=== PATIENT | male | born 1955 | race Caucasian/White ===

== ENCOUNTER 2018-05-12 17:35 | Inpatient (IN) ==
[2018-05-12] MEDS ORDERED: Ondansetron ODT 4 MG TAB.RAPDIS SL PRN (21:38)
[2018-05-12] MEDS ORDERED: Ketorolac 30 MG/ML VIAL IVP PRN (21:38)
[2018-05-12] MEDS ORDERED: OXYCODONE Oral CONC 10 MG/0.5 ML ORAL.SYG SL PRN (21:38)
[2018-05-12] MEDS ORDERED: Naloxone 0.4 MG/ML INJ IVP PRN (21:38)
[2018-05-12] MEDS ORDERED: 0.9 % Sodium Chloride 1,000 ML IVC SCH (21:45)
--- NOTE | 2018-05-12 21:49 | Internal Med History&Physical ---
Date of Encounter: 05/12/18 Time of Encounter: 21:46 Internal Medicine - H&P: HPI Admitted From: Home Plans for Post Hospital Care: Home History of present illness: Mr. Fuentes is a 62 year old man with a history of hypertension and anxiety disorder who has been having intermittent epigastric and right upper quadrant abdominal pain for the past 3 months and today after eating in the morning felt exquisite right upper quadrant pain that left him diaphoretic with generalized numbness. He began to have fever and chills and his girlfriend called the EMS after which she was taken to [facility]. He was found to have leukocytosis of 16.5 with neutrophilia, lactic acid of 3, lipase over 1999, and CT scan suggestive of pancreatitis and possible cholecystitis. They contacted Dr. Kwon of general surgery with the recommendation of transfer and evaluation for surgery tomorrow morning. He states that the pain is exacerbated by movements and has not been able to obtain adequate relief. He feels nauseated but has not vomited. He denies having diarrhea. He denies a smoking or alcohol history. His past medical history is remarkable for throat cancer requiring radiation therapy and chemotherapy for which he is now on supplemental thyroxine. He also has an extensive orthopedic surgery history. Past Med Surg Social Fam HX - Past Medical History Medical history: cancer, hypertension, thyroid disease Additional medical history: throat cancer had radiation and chemo. sleep apnea Psychiatric history: depression - Past Surgical History Additional surgical history: back 1997. left knee repl. left knee manip. [facility] - Social History Smoking Status: Never smoker Smokeless Tobacco Status: No Alcohol use: none Drug use: none Internal Medicine - H&P: Meds OxyCODONE Immed Rel [Roxicodone 5 MG] 5 mg PO Q4HR PRN #24 tablet 07/26/17 [Rx] Escitalopram [Lexapro] 20 mg PO DAILY 05/12/18 [History] Ibuprofen [Motrin] 800 mg PO Q8HR PRN 05/12/18 [History] Levothyroxine [Synthroid] 50 mcg PO 0630 05/12/18 [History] Lisinopril 10 mg PO DAILY 05/12/18 [History] 3 Allergy/AdvReac Type Severity Reaction Status Date / Time No Known Allergies Allergy Verified 07/26/17 11:04 All Systems PM: A 10-system review of systems was performed and is negative for pertinent findings except as documented above in the HPI. - Constitutional Vitals: Temp Pulse Resp BP Pulse Ox 98.4 F 78 15 150/87 96 05/12/18 20:43 05/12/18 20:43 05/12/18 20:43 05/12/18 20:43 05/12/18 20:43 Exam: Vitals: Reviewed and seem to be within normal limits. Afebrile. General: Well-developed male in no acute distress lying comfortably in bed. Skin: Warm and supple. HEENT: Slioghtly dry mucous membranes. No conjunctivae pallor. Neck: No lymphadenopathy. No JVD. Chest: Normal thoracic expansion. Normal breath sounds. Clear to auscultation. Heart: Normal S1 & S2; rhythmic. No rubs or murmurs. Abdomen: Non-distended, voluntary guarding on palpation with tenderness elicited on deep epigastric and RUQ palpation. No peritoneal reaction. Extremities: No clubbing, cyanosis or edema. No calf tenderness. Normal distal pulses. Neurological: Awake, alert and oriented to person, place and time. No focal deficits. Internal Med - H&P Results - Labs Labs: Outside labs were reviewed and indicated in the history of present illness. - Assessment and plan (1) Pancreatitis Current Visit: Yes Status: Acute Assessment and plan: No history of alcohol use; likely secondary to biliary obstruction given the intermittent colicky pain over the past 3 months and suggestive findings on CT. Seen to have lipase >2000 with radiologic and clinical findings that correlate. -IVF started. -Keep NPO. -Pain control with ketorolac and oxycodone prn. Qualifiers: Chronicity: acute Pancreatitis type: biliary Acute pancreatitis complication: no infection or necrosis Qualified Code(s): K85.10 - Biliary acute pancreatitis without necrosis or infection (2) Cholecystitis Current Visit: Yes Status: Acute Assessment and plan: Suggestive findings on imaging and RUQ pain predominance is suggestive. -Will order an ultrasound for more specificity to confirm findings. -Keep NPO. -Start empiric Pip/Tazo 3.375grs q8hrs. -Surgery consult placed. -Coags sent. (3) Sepsis Current Visit: Yes Status: Acute Assessment and plan: Evidenced by leukocytosis with neutrophilia and elevated lactic acid. Secondary to gastrointestinal processed as noted above. -Will give aggressive IVF -Monitor labs frequently and BP. -Abx as above. Qualifiers: Sepsis type: sepsis due to unspecified organism Qualified Code(s): A41.9 - Sepsis, unspecified organism (4) Anxiety and depression Current Visit: Yes Status: Chronic Assessment and plan: Will place lorazepam and escitalopram on hold for now; can be resumed after NPO status is advanced. - Time Spent With Patient Total time spent is greater than 50% in coordination of care (as documented) at patient's floor/unit and/or counseling patient: Greater than 35 minutes
[2018-05-12 22:22] LABS: Basophils % 0.1 %; Hematocrit 45.6 % (37.5-50.1); Hemoglobin 15.5 g/dL (12.9-16.9); Immature Granulocytes % 0.5 % (0-4); Lymphocytes # 0.6 K/mcL (0.6-4.6); Lymphocytes % 4.4 %; Mean Corpuscular Hemoglobin 31.5 pg (28.0-33.3); Mean Corpuscular Volume 92.7 fL (83.0-100.0); Mean Platelet Volume 10.6 fL (9.4-12.4); Monocytes # 0.8 K/mcL (0.0-1.3); Monocytes % 5.8 %; Neutrophils # 12.5 K/mcL (1.6-8.9); Platelet Count 154 K/mcL (140-400); Red Blood Count 4.92 M/mcL (4.19-5.50); Red Cell Distribution Width 13.8 % (11.5-14.5); Segmented Neutrophils % 89.2 %
[2018-05-12 22:31] LABS: INR 1.2
[2018-05-12 22:42] LABS: Alanine Aminotransferase 142 Units/L (7-52); Albumin 4.2 g/dL (3.5-5.7); Albumin/Globulin Ratio 1.6 (1.1-2.2); Alkaline Phosphatase 68 Units/L (34-104); Aspartate Amino Transferase 96 Units/L (13-39); BUN/Creatinine Ratio 22 (6-26); Bilirubin,Total 0.9 mg/dL (0.3-1.0); Blood Urea Nitrogen 18 mg/dL (8-23); Calcium 9.6 mg/dL (8.6-10.3); Carbon Dioxide 22 mEq/L (23-29); Chloride 105 mEq/L (98-107); Globulin 2.6 g/dL (2.4-3.5); Glucose 120 mg/dL (70-105); Osmolality,Calculated 289 (280-300); Potassium 4.1 mEq/L (3.5-5.1); Sodium 138 mEq/L (136-145); Total Protein 6.8 g/dL (6.4-8.9); eGFR For African Americans > 60 (> 60); eGFR For Non-African Americans > 60 (> 60)
[2018-05-12] MEDS ORDERED: 0.9 % Sodium Chloride 1,000 ML ONE (22:49)
[2018-05-12] MEDS ORDERED: Ondansetron 4 MG/2 ML VIAL ONE (22:49)
[2018-05-13] MEDS: Ringers Solution, Lactated 1,000 ML IVC SCH ×2 (00:01→09:00)
[2018-05-13] MEDS: Piperacillin/Tazobactam 3.375 GM in 0.9 % Sodium Chloride Mini Bag 100 ML IVPB SCH ×4 (00:02→23:30)
--- NOTE | 2018-05-13 01:48 | Event Note ---
Date of Encounter: 05/13/18 Time of Encounter: 01:47 The patient was seen lying comfortably in bed on follow up stating that his abdominal pain has improved however he feels as though he is "burning up" and has chills. His lactate has improved to 1.6 from 3.0. He is on IVF. Blood cultures were obtained prior to transfer here however given current symptoms, will repeat another set here for follow up.
[2018-05-13] MEDS: *HR* Heparin 5,000 UNIT/ML VIAL SQ SCH ×2 (06:38→21:19)
[2018-05-13 07:09] LABS: Basophils % 0.1 %; Hematocrit 40.4 % (37.5-50.1); Immature Granulocytes % 0.7 % (0-4); Lymphocytes # 0.6 K/mcL (0.6-4.6); Mean Corpuscular HGB Conc 33.9 g/dL (31.6-35.5); Mean Corpuscular Hemoglobin 31.9 pg (28.0-33.3); Mean Platelet Volume 10.9 fL (9.4-12.4); Monocytes # 0.9 K/mcL (0.0-1.3); Monocytes % 4.5 %; Platelet Count 148 K/mcL (140-400); Red Cell Distribution Width 14.2 % (11.5-14.5); Segmented Neutrophils % 91.7 %
[2018-05-13 07:13] LABS: Hemoglobin 13.7 g/dL (12.9-16.9)
[2018-05-13] MEDS ORDERED: Ondansetron ODT 4 MG TAB.RAPDIS SL PRN (07:29)
[2018-05-13 07:30] LABS: Alanine Aminotransferase 117 Units/L (7-52); Albumin 3.8 g/dL (3.5-5.7); Albumin/Globulin Ratio 1.6 (1.1-2.2); Alkaline Phosphatase 56 Units/L (34-104); Aspartate Amino Transferase 64 Units/L (13-39); BUN/Creatinine Ratio 21 (6-26); Blood Urea Nitrogen 21 mg/dL (8-23); Carbon Dioxide 24 mEq/L (23-29); Chloride 106 mEq/L (98-107); Globulin 2.4 g/dL (2.4-3.5); Glucose 153 mg/dL (70-105); Osmolality,Calculated 294 (280-300); Sodium 139 mEq/L (136-145); Total Protein 6.2 g/dL (6.4-8.9); eGFR For African Americans > 60 (> 60); eGFR For Non-African Americans > 60 (> 60)
--- NOTE | 2018-05-13 11:16 | General Surgery Consult Note ---
<Jonny Eldridge T - Last Filed: 05/13/18 11:25> Date of Encounter: 05/13/18 Time of Encounter: 11:13 Assessment and Plan (1) Cholecystitis Current Visit: Yes Status: Acute Right upper quadrant ultrasound ordered for tomorrow a.m. Clear liquid diet today nothing by mouth midnight. We will assess possible surgery tomorrow depending on if pancreatitis has resolved. IV fluids Encourage ambulation, positive spirometry Serial abdominal exams Surgery will continue following. (2) Pancreatitis Current Visit: Yes Status: Acute Waiting for pancreatitis to resolve before treating gallbladder. Follow labs. Qualifiers: Chronicity: acute Pancreatitis type: biliary Acute pancreatitis complication: no infection or necrosis Qualified Code(s): K85.10 - Biliary acute pancreatitis without necrosis or infection History of Present Illness Reason for consult: abdominal pain History of present illness: Patient presenting with right upper quadrant abdominal pain which radiates to right flank. Pain started yesterday morning. The pain is described as constant worsening greater than a 10 out of 10 on admission and currently a 5 out of 10 on pain meds. He also complains of nausea, vomiting, night sweats, fever, paresthesias in his hands, and vision blurring is a 3 months history of this pain however is never been this bad and usually resolves. Patient was given Zofran for nausea and vomiting and patient reports this has helped. Last bowel movement was yesterday morning. Liver function tests revealed an elevated AST 96, LT 142, and lipase 524. Ultrasound cannot be ordered today. Past Med Surg Social Fam HX - Past Medical History Medical history: cancer, hypertension, thyroid disease Additional medical history: throat cancer had radiation and chemo. sleep apnea Psychiatric history: depression - Past Surgical History Additional surgical history: back 1997. left knee repl. left knee manip. [facility] - Social History Smoking Status: Never smoker Smokeless Tobacco Status: No Alcohol use: none Drug use: none Medications and Allergies OxyCODONE Immed Rel [Roxicodone 5 MG] 5 mg PO Q4HR PRN #24 tablet 07/26/17 [Rx] Escitalopram [Lexapro] 20 mg PO DAILY 05/12/18 [History] Ibuprofen [Motrin] 800 mg PO Q8HR PRN 05/12/18 [History] Levothyroxine [Synthroid] 50 mcg PO 0630 05/12/18 [History] Lisinopril 10 mg PO DAILY 05/12/18 [History] LORazepam [Ativan] 0.5 mg PRN 05/13/18 [History] Zolpidem [Ambien] 10 mg PRN 05/13/18 [History] 3 Allergy/AdvReac Type Severity Reaction Status Date / Time No Known Allergies Allergy Verified 07/26/17 11:04 Review of Systems All systems PM: The remainder of the systems were reviewed and are negative General Surgery Exam Initial Vital Signs Temp Pulse Resp BP Pulse Ox 98.4 F 78 15 150/87 96 05/12/18 20:43 05/12/18 20:43 05/12/18 20:43 05/12/18 20:43 05/12/18 20:43 - Respiratory normal expansion, normal respiratory effort - Cardiovascular Cardiovascular exam: Present: RRR - Abdomen Abdomen general surgery: Present: soft. Absent: distended, guarding Abdominal Tenderness: Present: RUQ - Neurologic Present: CN 2-12 grossly intact - Psychiatric Psychiatric general surgery: Present: A&Ox3, appropriate, oriented to person, oriented to place, oriented to time, speech is normal, memory intact Exam Initial Vital Signs Temp Pulse Resp BP Pulse Ox 98.4 F 78 15 150/87 96 05/12/18 20:43 05/12/18 20:43 05/12/18 20:43 05/12/18 20:43 05/12/18 20:43 Results - Labs 05/13/18 06:52 05/13/18 06:52 Abnormal lab results WBC 20.8 K/mcL (4.3-11.1) H 05/13/18 06:52 Neutrophils # 19.0 K/mcL (1.6-8.9) H 05/13/18 06:52 PT 13.0 Seconds (9.4-12.1) H 05/12/18 22:02 Glucose 153 mg/dL (70-105) H 05/13/18 06:52 POC Glucose 147 mg/dL (70-99) H 05/13/18 05:07 AST 64 Units/L (13-39) H 05/13/18 06:52 ALT 117 Units/L (7-52) H 05/13/18 06:52 Serum Total Protein 6.2 g/dL (6.4-8.9) L 05/13/18 06:52 Lipase 524 Units/L (11-82) H 05/12/18 22:02 Diabetes panel 05/12/18 05/13/18 Range/Units 22:02 06:52 Sodium 138 139 (136-145) mEq/L Potassium 4.1 4.0 (3.5-5.1) mEq/L Chloride 105 106 (98-107) mEq/L Carbon Dioxide 22 L 24 (23-29) mEq/L BUN 18 21 (8-23) mg/dL Creatinine 0.82 1.00 (0.70-1.30) mg/dL Glucose 120 H 153 H (70-105) mg/dL Calcium 9.6 9.0 (8.6-10.3) mg/dL AST 96 H 64 H (13-39) Units/L ALT 142 H 117 H (7-52) Units/L Alkaline Phosphatase 68 56 (34-104) Units/L Albumin 4.2 3.8 (3.5-5.7) g/dL Calcium panel 05/12/18 05/13/18 Range/Units 22:02 06:52 Calcium 9.6 9.0 (8.6-10.3) mg/dL Albumin 4.2 3.8 (3.5-5.7) g/dL Pituitary panel 05/12/18 05/13/18 Range/Units 22:02 06:52 Sodium 138 139 (136-145) mEq/L Potassium 4.1 4.0 (3.5-5.1) mEq/L Chloride 105 106 (98-107) mEq/L Carbon Dioxide 22 L 24 (23-29) mEq/L BUN 18 21 (8-23) mg/dL Creatinine 0.82 1.00 (0.70-1.30) mg/dL Glucose 120 H 153 H (70-105) mg/dL Calcium 9.6 9.0 (8.6-10.3) mg/dL Adrenal panel 05/12/18 05/13/18 Range/Units 22:02 06:52 Sodium 138 139 (136-145) mEq/L Potassium 4.1 4.0 (3.5-5.1) mEq/L Chloride 105 106 (98-107) mEq/L Carbon Dioxide 22 L 24 (23-29) mEq/L BUN 18 21 (8-23) mg/dL Creatinine 0.82 1.00 (0.70-1.30) mg/dL Glucose 120 H 153 H (70-105) mg/dL Calcium 9.6 9.0 (8.6-10.3) mg/dL Total Bilirubin 0.9 1.0 (0.3-1.0) mg/dL AST 96 H 64 H (13-39) Units/L ALT 142 H 117 H (7-52) Units/L Alkaline Phosphatase 68 56 (34-104) Units/L Albumin 4.2 3.8 (3.5-5.7) g/dL All other labs normal. Consult Discharge Plan - Plan Referrals: Oli Cope [Primary Care Provider] - <Shine Kwon - Last Filed: 05/13/18 12:56> Date of Encounter: 05/13/18 Review of Systems All systems PM: The remainder of the systems were reviewed and are negative General Surgery Exam Initial Vital Signs Temp Pulse Resp BP Pulse Ox 98.4 F 78 15 150/87 96 05/12/18 20:43 05/12/18 20:43 05/12/18 20:43 05/12/18 20:43 05/12/18 20:43 Exam Initial Vital Signs Temp Pulse Resp BP Pulse Ox 98.4 F 78 15 150/87 96 05/12/18 20:43 05/12/18 20:43 05/12/18 20:43 05/12/18 20:43 05/12/18 20:43 Results - Labs 05/13/18 06:52 05/13/18 06:52 Abnormal lab results WBC 20.8 K/mcL (4.3-11.1) H 05/13/18 06:52 Neutrophils # 19.0 K/mcL (1.6-8.9) H 05/13/18 06:52 PT 13.0 Seconds (9.4-12.1) H 05/12/18 22:02 Glucose 153 mg/dL (70-105) H 05/13/18 06:52 POC Glucose 116 mg/dL (70-99) H 05/13/18 11:07 AST 64 Units/L (13-39) H 05/13/18 06:52 ALT 117 Units/L (7-52) H 05/13/18 06:52 Serum Total Protein 6.2 g/dL (6.4-8.9) L 05/13/18 06:52 Lipase 524 Units/L (11-82) H 05/12/18 22:02 Diabetes panel 05/12/18 05/13/18 Range/Units 22:02 06:52 Sodium 138 139 (136-145) mEq/L Potassium 4.1 4.0 (3.5-5.1) mEq/L Chloride 105 106 (98-107) mEq/L Carbon Dioxide 22 L 24 (23-29) mEq/L BUN 18 21 (8-23) mg/dL Creatinine 0.82 1.00 (0.70-1.30) mg/dL Glucose 120 H 153 H (70-105) mg/dL Calcium 9.6 9.0 (8.6-10.3) mg/dL AST 96 H 64 H (13-39) Units/L ALT 142 H 117 H (7-52) Units/L Alkaline Phosphatase 68 56 (34-104) Units/L Albumin 4.2 3.8 (3.5-5.7) g/dL Calcium panel 05/12/18 05/13/18 Range/Units 22:02 06:52 Calcium 9.6 9.0 (8.6-10.3) mg/dL Albumin 4.2 3.8 (3.5-5.7) g/dL Pituitary panel 05/12/18 05/13/18 Range/Units 22:02 06:52 Sodium 138 139 (136-145) mEq/L Potassium 4.1 4.0 (3.5-5.1) mEq/L Chloride 105 106 (98-107) mEq/L Carbon Dioxide 22 L 24 (23-29) mEq/L BUN 18 21 (8-23) mg/dL Creatinine 0.82 1.00 (0.70-1.30) mg/dL Glucose 120 H 153 H (70-105) mg/dL Calcium 9.6 9.0 (8.6-10.3) mg/dL Adrenal panel 05/12/18 05/13/18 Range/Units 22:02 06:52 Sodium 138 139 (136-145) mEq/L Potassium 4.1 4.0 (3.5-5.1) mEq/L Chloride 105 106 (98-107) mEq/L Carbon Dioxide 22 L 24 (23-29) mEq/L BUN 18 21 (8-23) mg/dL Creatinine 0.82 1.00 (0.70-1.30) mg/dL Glucose 120 H 153 H (70-105) mg/dL Calcium 9.6 9.0 (8.6-10.3) mg/dL Total Bilirubin 0.9 1.0 (0.3-1.0) mg/dL AST 96 H 64 H (13-39) Units/L ALT 142 H 117 H (7-52) Units/L Alkaline Phosphatase 68 56 (34-104) Units/L Albumin 4.2 3.8 (3.5-5.7) g/dL All other labs normal. - Attending Attestation I examined this patient and my medical decision-making was reviewed with the Resident Physician. I agree with the documented findings, disposition and treatment plan as described except to the extent set forth below. The patient is seen and evaluated with the resident on morning rounds. He was recently transferred with the diagnosis of pancreatitis from [facility]. Although the report is not available, I was able to review the CAT scan images. To my interpretation there may be cholelithiasis, however, I would like to confirm this with an ultrasound right upper quadrant. He continues to have active pancreatitis with an elevated lipase. He gives a personal history of right upper quadrant pain. I would like to repeat his amylase and lipase tomorrow morning to make sure his pancreatitis is resolving. If the ultrasound tomorrow confirms cholelithiasis, laparoscopic cholecystectomy will be indicated. Shine Kwon MD FACS
--- NOTE | 2018-05-13 21:43 | Internal Med Progress Note ---
Date of Encounter: 05/13/18 Time of Encounter: 21:41 - Assessment and plan (1) Acute pancreatitis Current Visit: Yes Status: Acute Qualifiers: Pancreatitis type: unspecified pancreatitis type Qualified Code(s): K85.90 - Acute pancreatitis without necrosis or infection, unspecified (2) Acute cholecystitis Current Visit: Yes Status: Suspected (3) Throat cancer Current Visit: Yes Status: Chronic (4) HTN (hypertension) Current Visit: Yes Status: Acute Qualifiers: Hypertension type: essential hypertension Qualified Code(s): I10 - Essential (primary) hypertension - Time Spent With Patient Total time spent is greater than 50% in coordination of care (as documented) at patient's floor/unit and/or counseling patient: 25 - 35 minutes - Subjective Interval history: .. The patient feels better. His right upper quadrant abdominal pain is mild in intensity. Denies nausea and vomiting. He is on nothing by mouth diet. Denies chest pain. Denies difficulty breathing, coughing and wheezing. He makes good amounts of urine. OBJECTIVE: .. Skin: Free of rash and discoloration. ENMT: Oral/pharyngeal mucosa is normal in appearance. Eyes: Sclera is white. There is no discharge from eyes. Respiratory: Normal breath sounds; no crackles or wheezes. CV: Heart is regular; no gallop or murmur. GI: Abdomen is soft and not tender. There is no palpable mass or visceromegaly. Neuro: There is no focal deficits. ASSESSMENT AND PLAN: .. Acute pancreatitis/possible acute cholecystitis. This diagnosis is based on the results of CT of abdomen/pelvis and elevated lipase. His leukocytosis from today is 20.8 thousand; 14.0 thousand at admission. We will continue nothing by mouth diet/IV fluids. Surgery was consulted. Ultrasound of right upper quadrant is to be done tomorrow morning. He will be taking when necessary sublingual oxycodone. The patient was diagnosed with throat and tongue cancer a few years ago. He does see his oncologist on a regular basis. Hypertension. Under control. Will continue lisinopril. Hypothyroidism. Under control. We will continue Synthroid. - Constitutional Vitals: Temp Pulse Resp BP Pulse Ox 99.6 F 88 15 184/94 95 05/13/18 19:45 05/13/18 19:45 05/13/18 19:45 05/13/18 19:45 05/13/18 19:45 Internal Medicine: Result - Labs CBC & Chem 7: 05/13/18 06:52 05/13/18 06:52 Labs: Short CBC 05/12/18 05/13/18 Range/Units 22:02 06:52 WBC 14.0 H 20.8 H (4.3-11.1) K/mcL Hgb 15.5 13.7 D (12.9-16.9) g/dL Hct 45.6 40.4 (37.5-50.1) % Plt Count 154 148 (140-400) K/mcL Neutrophils # 12.5 H 19.0 H (1.6-8.9) K/mcL BMP 05/12/18 05/13/18 22:02 06:52 Sodium 138 139 Potassium 4.1 4.0 Chloride 105 106 Carbon Dioxide 22 L 24 BUN 18 21 Creatinine 0.82 1.00 Glucose 120 H 153 H Calcium 9.6 9.0 Liver Function 05/12/18 05/13/18 Range/Units 22:02 06:52 Total Bilirubin 0.9 1.0 (0.3-1.0) mg/dL AST 96 H 64 H (13-39) Units/L ALT 142 H 117 H (7-52) Units/L Alkaline Phosphatase 68 56 (34-104) Units/L Albumin 4.2 3.8 (3.5-5.7) g/dL - ABG Interpretation ABG results: PT/INR, D-dimer PT 13.0 Seconds (9.4-12.1) H 05/12/18 22:02 Consult Discharge Plan - Plan Referrals: Oli Cope [Primary Care Provider] -
[2018-05-14] MEDS: *HR* Heparin 5,000 UNIT/ML VIAL SQ SCH ×3 (06:17→21:15)
[2018-05-14 06:55] LABS: Basophils % 0.3 %; Eosinophils % 0.6 %; Hematocrit 40.7 % (37.5-50.1); Hemoglobin 13.7 g/dL (12.9-16.9); Immature Granulocytes % 0.4 % (0-4); Lymphocytes # 0.7 K/mcL (0.6-4.6); Mean Corpuscular HGB Conc 33.7 g/dL (31.6-35.5); Mean Corpuscular Hemoglobin 31.4 pg (28.0-33.3); Mean Corpuscular Volume 93.1 fL (83.0-100.0); Monocytes # 0.6 K/mcL (0.0-1.3); Monocytes % 8.7 %; Platelet Count 119 K/mcL (140-400); Red Blood Count 4.37 M/mcL (4.19-5.50); Red Cell Distribution Width 13.9 % (11.5-14.5)
[2018-05-14 06:57] LABS: Neutrophils # 5.8 K/mcL (1.6-8.9)
[2018-05-14 07:12] LABS: BUN/Creatinine Ratio 17 (6-26); Blood Urea Nitrogen 12 mg/dL (8-23); Calcium 8.9 mg/dL (8.6-10.3); Carbon Dioxide 25 mEq/L (23-29); Chloride 103 mEq/L (98-107); Glucose 125 mg/dL (70-105); Osmolality,Calculated 281 (280-300); Potassium 3.7 mEq/L (3.5-5.1); Sodium 135 mEq/L (136-145); eGFR For African Americans > 60 (> 60); eGFR For Non-African Americans > 60 (> 60)
[2018-05-14 07:18] LABS: Albumin 3.9 g/dL (3.5-5.7); Albumin/Globulin Ratio 1.4 (1.1-2.2); Bilirubin,Direct 0.2 mg/dL (0.0-0.2); Bilirubin,Indirect 0.8 mg/dL (0.0-1.2); Globulin 2.7 g/dL (2.4-3.5); Total Protein 6.6 g/dL (6.4-8.9)
[2018-05-14] MEDS: Piperacillin/Tazobactam 3.375 GM in 0.9 % Sodium Chloride Mini Bag 100 ML IVPB SCH ×2 (07:55→15:51)
[2018-05-14] MEDS ORDERED: Isovue-300 50 ML VIAL IVP ONE (09:59)
[2018-05-14] MEDS ORDERED: Ondansetron 4 MG/2 ML VIAL ONE (10:03)
[2018-05-14] MEDS ORDERED: *HR* FentaNYL (PF) 100 MCG/2 ML VIAL ONE (10:03)
[2018-05-14] MEDS ORDERED: Lidocaine -MPF 2% 2 ML VIAL ONE (10:03)
[2018-05-14] MEDS ORDERED: *HR* Rocuronium Bromide 50 MG/5 ML VIAL ONE (10:03)
[2018-05-14] MEDS ORDERED: *HR* Midazolam HCl 2 MG/2 ML VIAL ONE (10:04)
[2018-05-14] MEDS ORDERED: *HR* Propofol 200 MG/20 ML VIAL IVP ONE (10:04)
[2018-05-14] MEDS ORDERED: Dexamethasone 4 MG/ML VIAL ONE ×2 (10:05→10:52)
--- NOTE | 2018-05-14 10:07 | Anesthesia Evaluation PreOp ---
Date of Encounter: 05/14/18 Time of Encounter: 10:05 - Past History Planned Operation: lap marcellus Cardiac History: HTN Pulmonary History: YANI Dx OIL PAINTER History: Other (anxiety) Other Medical History: Thyroid (hypo), Other (throat cancer rx'd with XRT and chemo) Anesthesia History: No Prior Anesthetic Complications, Past Anesthesia (back, left TKA, BCTR, left shoulder 2017 (used glidescope without issue)) Alcohol Use: none Drug use: none Medications and Allergies OxyCODONE Immed Rel [Roxicodone 5 MG] 5 mg PO Q4HR PRN #24 tablet 07/26/17 [Rx] Escitalopram [Lexapro] 20 mg PO DAILY 05/12/18 [History] Ibuprofen [Motrin] 800 mg PO Q8HR PRN 05/12/18 [History] Levothyroxine [Synthroid] 50 mcg PO 0630 05/12/18 [History] Lisinopril [Zestril] 10 mg PO DAILY 05/12/18 [History] LORazepam [Ativan] 0.5 mg PO DAILY PRN 05/13/18 [History] Metoprolol [Lopressor] 50 mg PO DAILY 05/13/18 [History] Zolpidem [Ambien] 10 mg PO HS PRN 05/13/18 [History] 3 Allergy/AdvReac Type Severity Reaction Status Date / Time No Known Allergies Allergy Verified 05/13/18 13:51 - Meds/Allergy Pre-op Review Medications Reviewed: Yes Allergies Reviewed: Yes Beta Blockers on Current Med List: No Anesthesia Results - Labs 05/14/18 05:55 05/14/18 05:55 Anesthesia Exam Selected Entries 05/14/18 06:56 Temperature 99.6 F Pulse Rate 89 Respiratory Rate 18 Blood Pressure 150/76 O2 Sat by Pulse Oximetry 95 Weight: 100kg NPO (# of Hours): 8 - HEENT Pupil (Motor): EOMI Mallampati: III Teeth: Normal Oral Opening: Greater than 3 - OIL PAINTER LOC: Oriented OIL PAINTER Motor: Normal RUE, Normal LUE, Normal RLE, Normal LLE, Normal Face OIL PAINTER Sensory: Normal: RUE, LUE, RLE, LLE, Face - Cardiac Rhythm: Regular Murmur: None - Pulmonary Breath Sounds: bilateral Clear Respiratory Effort: Symmetrical Anesthesia Assess/Plan ASA Score: 3 Modified Jovan Scale for Level of Consciousness: Cooperative, oriented, and tranquil Anesthetic Plan: General Monitoring Plan: Standard Monitors Recovery Plan: PACU (agrees to GA)
[2018-05-14] MEDS ORDERED: *HR* Morphine 2 MG/ML SYRINGE IVP PRN ×2 (10:12→12:24)
[2018-05-14] MEDS ORDERED: *HR* OxyCODONE Immed Rel 5 MG TABLET PO PRN ×2 (10:12→12:24)
[2018-05-14] MEDS ORDERED: *HR* Promethazine 25 MG/ML VIAL IVP PRN ×2 (10:12→12:24)
[2018-05-14] MEDS ORDERED: *HR* Labetalol 20 MG/4 ML SYRINGE IVP PRN ×2 (10:12→12:24)
[2018-05-14] MEDS ORDERED: Acetaminophen IV 1,000 MG/100 ML INFUS..BTL ONE (10:17)
[2018-05-14] MEDS ORDERED: cefOXitin 1,000 MG, 0.9 % Sodium Chloride 1,000 ML IR ONE ×2 (10:30→12:24)
[2018-05-14] MEDS ORDERED: Esmolol 100 MG/10 ML VIAL IVP ONE (11:13)
[2018-05-14] MEDS ORDERED: Ketorolac 30 MG/ML VIAL ONE (11:22)
--- NOTE | 2018-05-14 11:32 | Operative Note ---
Date of procedure: 05/14/18 Pre-op diagnosis: Gallstone pancreatitis Post-op diagnosis: same Procedure: laparoscopic cholecystectomy, cholangiogram Anesthesia: ZECHARIAH Surgeon: Shine Kwon Was there an preschool assistant teacher present: No Estimated blood loss (cc): 20 Specimen: Gallbladder and contents Condition: stable Disposition: PACU Procedure in Detail: Laparoscopic cholecystectomy and intraoperative cholangiogram Operative procedure after informed consent and appropriate patient identification timeout the patient was taken to the major operating suite and placed supine position given adequate general endotracheal anesthesia the abdomen is prepped and draped in sterile fashion utilizing ChloraPrep standard draping techniques timeout was taken patient is identified. I made a vertical midline incision below the umbilicus dissected down to level of fascia there are 2 traction stitches placed in the abdominal cavity was entered visually. A Sandy trocar was placed in the abdomen and the abdomen was insufflated to 15 mmHg pressure CO2 the gallbladder was visualized. A placement 11 port in the subxiphoid area and 2 5 mm ports in the subcostal area. The gallbladder was grasped and elevated. A variety of blunt and sharp dissection techniques were used to isolate the cystic duct and cystic artery. The cystic artery was controlled with 2 surgical clips proximally and one distally and it was divided I placed a surgical clip on the neck the gallbladder and obtained an intraoperative cholangiogram using 10 mL of Isovue. Intraoperative cholangiogram was normal. The cholangiocatheter was removed and the cystic duct was controlled with 2 surgical clips proximally and was divided the gallbladder was removed from the gallbladder fossae using electrocautery. The gallbladder was removed through the #11 port site. I replaced the #11 port and irrigated with copious amounts of antibiotic containing solution. There is no evidence of bleeding or bile leak. All trochars were removed. Fascia was closed with 0 Vicryl skin with 2-0 and 4-0 Vicryl he tolerated the procedure well and was transferred to recovery in stable condition
[2018-05-14] MEDS ORDERED: Naloxone 0.4 MG/ML INJ IVP PRN (12:24)
[2018-05-14] MEDS ORDERED: Ondansetron ODT 4 MG TAB.RAPDIS SL PRN (12:24)
[2018-05-14] MEDS ORDERED: Ketorolac 30 MG/ML VIAL IVP PRN (12:24)
[2018-05-14] MEDS: OXYCODONE Oral CONC 10 MG/0.5 ML ORAL.SYG SL PRN ×2 (12:45→17:00)
--- NOTE | 2018-05-14 14:27 | Event Note ---
Date of Encounter: 05/14/18 Time of Encounter: 14:21 Okay to discharge from a surgical perspective when he is tolerating liquids without nausea or vomiting, vital signs stable, afebrile, abdominal discomfort is controlled. Follow-up in office in 2 weeks, [facility] plan for further instructions. - Patient Status Disposition: Still a Patient Condition: Good Functional capacity at discharge: independent ambulation Overall status at discharge: patient is not back to baseline - Discharge Instructions Instructions: Laparoscopic Cholecystectomy (DC) Follow Up With: Oli Cope [Primary Care Provider] - Erika Mora CNP [Advanced Practice Nurse] - 05/29/18 1:00 pm Forms: Inpatient Work/School Release Additional Instructions: General Surgical Discharge Instructions 1. No pushing, pulling, or lifting greater than 15 lbs for 2-4 weeks (depending upon procedure). 2. You may shower beginning today, but no tub baths, soaking, or swimming for 2 weeks. 3. You may resume driving when you are off narcotics and are safe to react in a car. 4. Take ibuprofen every 8 hours for discomfort. If this does not relieve discomfort, you may take the as needed Percocet. Take narcotics as directed. Do not take more narcotics then directed and do not share your narcotics with any other person. Do not drink alcohol while on narcotics. 5. Take stool softeners (Colace) or a water based laxative (Miralax) while taking narcotics. You may hold for loose stools. 6. Report any fevers greater than 100.5F, increase abdominal discomfort, drainage that looks like pus, increased redness or pain at the surgical site, or any vomiting. 7. Report any pain in the calves, shortness of breath, or rapid heartbeat. 8. Follow-up in the office as directed. 9. If you were prescribed antibiotics, do not stop them without talking to your provider. - Diet and Activity Activity: increase activity as tolerated Diet: advance to your usual diet
--- NOTE | 2018-05-14 19:19 | Anesthesia Evaluation Post Op ---
Date of Encounter: 05/14/18 Time of Encounter: 19:16 - Vital Signs Vital Signs: Vital Signs Temp Pulse Resp BP Pulse Ox 05/14/18 19:14 98.1 F 94 14 126/84 93 05/14/18 15:20 97.8 F 92 16 135/90 95 05/14/18 14:20 98.1 F 79 16 175/96 92 05/14/18 13:23 98.2 F 86 16 173/98 95 05/14/18 12:59 98.7 F 85 16 179/98 95 05/14/18 12:30 98.5 F 84 16 174/94 93 05/14/18 12:12 99.9 F H 84 16 164/98 94 05/14/18 12:02 86 16 152/89 94 05/14/18 11:52 89 16 149/84 95 05/14/18 11:42 97.9 F 87 20 157/92 98 05/14/18 08:20 95 05/14/18 06:56 99.6 F 89 18 150/76 95 05/14/18 04:07 100.4 F H 97 15 166/90 92 05/13/18 19:45 99.6 F 88 15 184/94 95 Intake and Output 05/14/18 05/14/18 05/14/18 07:59 15:59 23:59 Intake Total 100 / 100 160 / 160 350 / 350 Output Total 875 / 875 435 / 435 550 / 550 Balance -775 / -775 -275 / -275 -200 / -200 Intake: IV Fluids 100 / 100 100 / 100 Zosyn 3.375 GM In 0.9 % Sodium 100 / 100 100 / 100 Chloride (Mini-Bag +) 100 ML @ 25 mls/hr IVPB Q8HR [facility] Rx#: [id number] Oral 0 / 0 60 / 60 350 / 350 Output: Urine 875 / 875 425 / 425 550 / 550 Estimated Blood Loss 10 Other: Meal NPO BREAKFAST # Bowel Movements 0 Weight 100.4 kg Blood Glucose* 112 Patient Weight 05/14/18 23:59 Weight 100.4 kg - Lungs Lungs: Clear Ascult./Percussion - Airway Airway: Non-obstructed - Cardiovascular Regular Rate - Mental Status Mental Status: Alert & Oriented, Answers Appropriately - Pain Pain Scale: 5 Pain Scale used: Numeric (1 - 10) - Nausea Vomiting Nausea Vomiting: Not Present - Hydration Hydration: Ice chips, Has not voided - Discharge PostOp Status: Transfer Patient to floor Anes Supervising Prov Stmt: Pt seen/evaluated, VSS and pt has met criteria for discharge to floor. - MD So
--- NOTE | 2018-05-14 23:52 | Internal Med Progress Note ---
Date of Encounter: 05/14/18 Time of Encounter: 11:00 - Assessment and plan (1) Acute pancreatitis Current Visit: Yes Status: Acute Qualifiers: Pancreatitis type: unspecified pancreatitis type Qualified Code(s): K85.90 - Acute pancreatitis without necrosis or infection, unspecified (2) Cholelithiasis Current Visit: Yes Status: Acute Qualifiers: Cholelithiasis location: gallbladder Cholecystitis presence: without cholecystitis Biliary obstruction: without biliary obstruction Qualified Code(s): K80.20 - Calculus of gallbladder without cholecystitis without obstruction (3) Throat cancer Current Visit: Yes Status: Chronic (4) HTN (hypertension) Current Visit: Yes Status: Acute Qualifiers: Hypertension type: essential hypertension Qualified Code(s): I10 - Essential (primary) hypertension - Time Spent With Patient Total time spent is greater than 50% in coordination of care (as documented) at patient's floor/unit and/or counseling patient: 25 - 35 minutes - Subjective Interval history: .. His right upper quadrant abdominal pain is nearly gone. Denies nausea and vomiting. He is on nothing by mouth diet and IV fluids. Ultrasound of gallbladder/biliary tree showed cholelithiasis without cholecystitis/biliary obstruction. Denies chest pain. Denies difficulty breathing, coughing and wheezing. He makes good amounts of urine. OBJECTIVE: .. Skin: Free of rash and discoloration. ENMT: Oral/pharyngeal mucosa is normal in appearance. Eyes: Sclera is white. There is no discharge from eyes. Respiratory: Normal breath sounds; no crackles or wheezes. CV: Heart is regular; no gallop or murmur. GI: Abdomen is soft and not tender. There is no palpable mass or visceromegaly. Neuro: There is no focal deficits. ASSESSMENT AND PLAN: .. Acute calculus pancreatitis. The patient will have laparoscopic cholecystectomy in the late afternoon. We will continue nothing by mouth diet and IV fluids. The patient was diagnosed with throat and tongue cancer a few years ago. He does see his oncologist on a regular basis. Hypertension. Under control. Will continue lisinopril. Hypothyroidism. Under control. We will continue Synthroid. - Constitutional Vitals: Temp Pulse Resp BP Pulse Ox 98.1 F 94 14 126/84 93 05/14/18 19:14 05/14/18 19:14 05/14/18 19:14 05/14/18 19:14 05/14/18 21:15 Internal Medicine: Result - Labs CBC & Chem 7: 05/14/18 05:55 05/14/18 05:55 Labs: Short CBC 05/14/18 Range/Units 05:55 WBC 7.2 D (4.3-11.1) K/mcL Hgb 13.7 (12.9-16.9) g/dL Hct 40.7 (37.5-50.1) % Plt Count 119 L (140-400) K/mcL Neutrophils # 5.8 (1.6-8.9) K/mcL BMP 05/14/18 05:55 Sodium 135 L Potassium 3.7 Chloride 103 Carbon Dioxide 25 BUN 12 Creatinine 0.71 Glucose 125 H Calcium 8.9 Liver Function 05/14/18 Range/Units 05:55 Total Bilirubin 1.0 (0.3-1.0) mg/dL Direct Bilirubin 0.2 (0.0-0.2) mg/dL AST 53 H (13-39) Units/L ALT 95 H (7-52) Units/L Alkaline Phosphatase 57 (34-104) Units/L Albumin 3.9 (3.5-5.7) g/dL - ABG Interpretation ABG results: PT/INR, D-dimer PT 13.0 Seconds (9.4-12.1) H 05/12/18 22:02 - Impressions Impressions Cholangiogram,Operative 05/14/18 00:00 IMPRESSION: Please see operative report for further details. D/ / Calderon Izaguirre MD / Calderon Izaguirre MD Interpreting Provider: Calderon Izaguirre MD Gallbladder Ultrasound 05/14/18 08:00 IMPRESSION: Cholelithiasis without evidence of cholecystitis. Hepatic steatosis. D/ / 05/14/2018 08:34:28 Patti Heard MD / [email or web address] Interpreting Provider: Patti Heard MD - VTE Documentation of Mechanical Device: Intermittent pneumatic compression device Consult Discharge Plan - Plan Instructions: Laparoscopic Cholecystectomy (DC) Additional Instructions: General Surgical Discharge Instructions 1. No pushing, pulling, or lifting greater than 15 lbs for 2-4 weeks (depending upon procedure). 2. You may shower beginning today, but no tub baths, soaking, or swimming for 2 weeks. 3. You may resume driving when you are off narcotics and are safe to react in a car. 4. Take ibuprofen every 8 hours for discomfort. If this does not relieve discomfort, you may take the as needed Percocet. Take narcotics as directed. Do not take more narcotics then directed and do not share your narcotics with any other person. Do not drink alcohol while on narcotics. 5. Take stool softeners (Colace) or a water based laxative (Miralax) while taking narcotics. You may hold for loose stools. 6. Report any fevers greater than 100.5F, increase abdominal discomfort, drainage that looks like pus, increased redness or pain at the surgical site, or any vomiting. 7. Report any pain in the calves, shortness of breath, or rapid heartbeat. 8. Follow-up in the office as directed. 9. If you were prescribed antibiotics, do not stop them without talking to your provider. Referrals: Oli Cope [Primary Care Provider] - Erika Mora CNP [Advanced Practice Nurse] - 05/29/18 1:00 pm Prescriptions: Ondansetron ODT [Zofran ODT] 4 mg SL Q4HR PRN #15 tab.rapdis PRN Reason: Postsurgical nausea OxyCODONE/APAP 5/325 [Percocet 5/325 MG] 1 each PO Q6HR PRN 7 Days #28 tablet PRN Reason: Pain Docusate Sodium [Colace] 100 mg PO BID PRN #30 capsule PRN Reason: Contstipation Ibuprofen 800 mg PO Q8H PRN #60 tablet PRN Reason: Mild Pain
[2018-05-15] MEDS: Piperacillin/Tazobactam 3.375 GM in 0.9 % Sodium Chloride Mini Bag 100 ML IVPB SCH ×2 (00:43→07:31)
[2018-05-15] MEDS: *HR* Heparin 5,000 UNIT/ML VIAL SQ SCH (06:32)
[2018-05-15 10:24] VITALS: BP 153/88
--- NOTE | 2018-05-15 12:33 | Discharge Summary ---
Orders not resulted at time of discharge: Pending orders 05/13/18 06:52 Culture,Blood [BC] AM 0400 Culture,Blood,Additional [BC] AM 0400 05/14/18 11:24 Surgical Pathology [PTH] Routine Date of Encounter: 05/15/18 Time of Encounter: 12:31 - Discharge Diagnosis (1) Cholecystitis Priority: Primary Status: Acute (2) Acute pancreatitis Priority: Secondary Status: Acute Qualifiers: Pancreatitis type: unspecified pancreatitis type Acute pancreatitis complication: no infection or necrosis Qualified Code(s): K85.90 - Acute pancreatitis without necrosis or infection, unspecified (3) Cholelithiasis Priority: Secondary Status: Acute Qualifiers: Cholelithiasis location: gallbladder Cholecystitis presence: without cholecystitis Biliary obstruction: without biliary obstruction Qualified Code(s): K80.20 - Calculus of gallbladder without cholecystitis without obstruction (4) HTN (hypertension) Priority: Secondary Status: Acute Qualifiers: Hypertension type: essential hypertension Qualified Code(s): I10 - Essential (primary) hypertension (5) Sepsis Priority: Secondary Status: Acute Qualifiers: Sepsis type: sepsis due to unspecified organism Qualified Code(s): A41.9 - Sepsis, unspecified organism (6) Throat cancer Priority: Secondary Status: Chronic Hospital course: Mr. Fuentes is a 62 year old male who presented with abdominal pain. Patient was diagnosed with sepsis secondary to acute cholecystitis as well as acute pancreatitis. The patient was taken to the operating room and had a laparoscopic cholecystectomy performed. The patient had an unremarkable hospital course and improved rapidly. The patient was given full discharge instructions from general surgery. Discharge discussed with: patient, nurse - Time Spent with Patient Total time spent providing and/or coordinating discharge services: Greater than 30 minutes - Discharge Medications Prescriptions: Ondansetron ODT [Zofran ODT] 4 mg SL Q4HR PRN #15 tab.rapdis PRN Reason: Postsurgical nausea OxyCODONE/APAP 5/325 [Percocet 5/325 MG] 1 each PO Q6HR PRN 7 Days #28 tablet PRN Reason: Pain Docusate Sodium [Colace] 100 mg PO BID PRN #30 capsule PRN Reason: Contstipation Ibuprofen 800 mg PO Q8H PRN #60 tablet PRN Reason: Mild Pain Home Medications: OxyCODONE Immed Rel [Roxicodone 5 MG] 5 mg PO Q4HR PRN #24 tablet 07/26/17 [Rx] Escitalopram [Lexapro] 20 mg PO DAILY 05/12/18 [History] Ibuprofen [Motrin] 800 mg PO Q8HR PRN 05/12/18 [History] Levothyroxine [Synthroid] 50 mcg PO 0630 05/12/18 [History] Lisinopril [Zestril] 10 mg PO DAILY 05/12/18 [History] LORazepam [Ativan] 0.5 mg PO DAILY PRN 05/13/18 [History] Metoprolol [Lopressor] 50 mg PO DAILY 05/13/18 [History] Zolpidem [Ambien] 10 mg PO HS PRN 05/13/18 [History] Docusate Sodium [Colace] 100 mg PO BID PRN #30 capsule 05/14/18 [Rx] Ibuprofen 800 mg PO Q8H PRN #60 tablet 05/14/18 [Rx] Ondansetron ODT [Zofran ODT] 4 mg SL Q4HR PRN #15 tab.rapdis 05/14/18 [Rx] OxyCODONE/APAP 5/325 [Percocet 5/325 MG] 1 each PO Q6HR PRN 7 Days #28 tablet [Rx] Allergies/Adverse Reactions: 3 Allergy/AdvReac Type Severity Reaction Status Date / Time No Known Allergies Allergy Verified 05/13/18 13:51 Date of admission: 05/12/18 20:01 Primary care physician: Oli Cope Consults: 05/12/18 20:45 Consult to Surgery [CONS] Routine Consulting Provider: [facility] Reason for Consult: Dr Kwon was called by Yasmine for cholecystitis and diverticulitis. Call Completed: Yes - Constitutional Vitals: Temp Pulse Resp BP Pulse Ox 98.0 F 73 16 153/88 94 05/15/18 10:22 05/15/18 10:22 05/15/18 10:22 05/15/18 10:22 05/15/18 10:22 Exam: Constitutional: No acute distress, Alert Psych: AAO x 3 HEENT: NCAT, EOMI Neck: supple, no JVD Cardio: regular rate and rhythm, +s1s2, no murmurs/rubs/ronchi, no lower extremity edema, no JVD Resp: clear to ascultation bilaterally, no wheezes/rales/ronchi Abd: soft, appropratiely TTP around surgical site/non distended, positive bowel sounds, incision C/D/I no gaurding/reboud/ridgitity Extremities: no clubbing/cyanosis/edema appreciated Neuro: no focal deficits appreciated Lymph: no cervical/supraclavicular adenopahty apprecitated - Patient Status Disposition: Home, Self-Care Functional capacity at discharge: independent ambulation Overall status at discharge: patient is back to baseline - Discharge Instructions Instructions: Laparoscopic Cholecystectomy (DC) Follow Up With: Oli Cope [Primary Care Provider] - Erika Mora CNP [Advanced Practice Nurse] - 05/29/18 1:00 pm Forms: Inpatient Work/School Release Additional Instructions: General Surgical Discharge Instructions 1. No pushing, pulling, or lifting greater than 15 lbs for 2-4 weeks (depending upon procedure). 2. You may shower beginning today, but no tub baths, soaking, or swimming for 2 weeks. 3. You may resume driving when you are off narcotics and are safe to react in a car. 4. Take ibuprofen every 8 hours for discomfort. If this does not relieve discomfort, you may take the as needed Percocet. Take narcotics as directed. Do not take more narcotics then directed and do not share your narcotics with any other person. Do not drink alcohol while on narcotics. 5. Take stool softeners (Colace) or a water based laxative (Miralax) while taking narcotics. You may hold for loose stools. 6. Report any fevers greater than 100.5F, increase abdominal discomfort, drainage that looks like pus, increased redness or pain at the surgical site, or any vomiting. 7. Report any pain in the calves, shortness of breath, or rapid heartbeat. 8. Follow-up in the office as directed. 9. If you were prescribed antibiotics, do not stop them without talking to your provider. - Diet and Activity Activity: increase activity as tolerated Diet: advance to your usual diet - VTE Documentation of Mechanical Device: Intermittent pneumatic compression device
== END 2018-05-15 12:52 | disposition home or self-care (01) | DRG 853 ==
LOC: 3ANU 20:01 → SUATTDRO 20:01
PROVIDERS: ADMIT Internal Medicine; ATTEND Internal Medicine